=== PATIENT | female | born 1995 | race Caucasian/White ===

== ENCOUNTER 2017-08-12 10:19 | Emergency (ER) | payer OTHER ==
[~2017-08-12] VITALS: Ht 160 cm; Wt 108.0 kg
[2017-08-12 10:24] VITALS: TEMP 36.8; Ht 160 cm; Wt 108.0 kg
--- NOTE | 2017-08-12 10:30 | EMERGENCY ROOM VISIT NOTE ---
ED Visit Note First contact with patient: 10:28 CHIEF COMPLAINT: Left flank pain, urinary symptoms HISTORY OF PRESENTING ILLNESS: This is a 21-year-old female who presents to the emergency department with complaint of left flank pain and symptoms of urinary frequency, urgency, and dysuria. Patient states that her symptoms started approximately 2 days ago. She does report a history of frequent UTIs, and states that she thought that is what this was, so she went to urgent care yesterday to be evaluated. She was told that she had a UTI and was started on ciprofloxacin and given Pyridium. She has taken 2 doses of the Cipro, but has not been feeling any better, and her left flank pain but a little bit worse. She reports some low-grade fevers and some chills, intermittent nausea, but denies any vomiting. She denies any other symptoms of headache, vision changes , neck pain or stiffness, chest pain, shortness of breath, dizziness or syncope , diarrhea, blood in the urine, abnormal vaginal bleeding or discharge, or unusual rash. REVIEW OF SYSTEMS: A complete 10 point review of systems was reviewed with the patient with pertinent positives and negatives as per history of present illness. All else were negative. PAST MEDICAL HISTORY: PCOS SOCIAL HISTORY: Lives at home. She is a [employer] student. She denies tobacco use. ALLERGIES: No known allergies. PHYSICAL EXAM: CONSTITUTIONAL: Pleasant and cooperative. No acute distress, but appears uncomfortable. Well appearing and well nourished. HEENT: Normocephalic, atraumatic. Pupils equal, round and reactive to light, EOMI. TMs normal. Pharynx normal. NECK: Supple, full active range of motion without discomfort. RESPIRATORY: Clear to auscultation bilaterally with no wheezing, crackles, rhonchi or stridor. Equal expansion bilaterally. CARDIOVASCULAR: Regular rate and rhythm with no murmurs, rubs or gallops. Normal peripheral perfusion. No edema. GASTROINTESTINAL: Soft, mild tenderness to palpation of the left flank, left- sided CVA tenderness, nondistended. No rebound tenderness or guarding. No palpable masses or HSM. Bowel sounds present in all quadrants. MUSCULOSKELETAL: Full range of motion of all joints without discomfort. INTEGUMENTARY: No rash or other significant dermatologic conditions noted. NEUROLOGIC: Alert and oriented X 4 with normal affect. Normal strength and sensation in all 4 extremities. No focal neurologic deficits noted. Normal speech. Normal gait observed. ED COURSE AND MEDICAL DECISION MAKING: CC: Patient presenting with complaint of left flank pain and urinary symptoms DIFFERENTIAL DIAGNOSIS: Includes, but not limited to UTI, pyelonephritis, ureteral stone, diverticulitis, pancreatitis, gastroenteritis, ectopic , ovarian pathology, among others. INTERPRETATION OF LABS: Leukocytosis left shift, no anemia, no significant electrolyte abnormalities, normal renal function, normal liver enzymes and lipase. UA consistent with UTI. Urine negative. IMAGING: ABDOMEN AND PELVIS CT WITHOUT CONTRAST CT DOSE: 1159.03 mGy.cm HISTORY: left flank pain, urinary frequency, eval stone vs pyelo TECHNIQUE: Multiaxial CT images of the abdomen and pelvis were performed without the use of intravenous and oral contrast according to the standard department stone protocol. A dose lowering technique was utilized adhering to the principles of ALARA. COMPARISON STUDY: None. FINDINGS: The lung bases are clear. No pneumoperitoneum. No pneumatosis. No acute fractures within the visualized osseous structures. The unenhanced liver, gallbladder, spleen, adrenal glands, pancreas, and right kidney are unremarkable. No renal or ureteral stones. No hydronephrosis. Mild left perinephric fat stranding. Mild bladder wall thickening. An intrauterine device is in good position. Suboptimal evaluation for bowel pathology due to the lack images and oral contrast. However, there is no definite bowel wall thickening or obstruction. Normal appendix. IMPRESSION: 1. Mild left perinephric fat stranding. No renal or ureteral stones. No hydronephrosis. Therefore, this favors a pyelonephritis. Recommend correlation with urinalysis. 2. Mild bladder wall thickening consistent with a cystitis. MEDICATION RECONCILIATION: I attest that I have personally reviewed the patient 's current medication list. INITIAL VITAL SIGNS REVIEW: I reviewed the patient's initial vital signs and interpret them as follows: T: Afebrile; BP: Hypertensive; HR: Mildly tachycardic; RR: Within normal limits; Pulse Ox: Within normal limits on room air. Blood pressure screening: The patient was found to have an elevated blood pressure, which was felt to be situational. SUMMARY: Patient was evaluated at bedside, history and physical exam performed. Patient alert and oriented, in no acute distress but does appear to be uncomfortable and in pain, resting calmly in the stretcher. Patient has tenderness to the left flank and left CVA tenderness. Orders were placed at bedside for labs, UA and urine , IV fluids for hydration, IV Toradol for pain, CT abdomen/pelvis noncontrast to evaluate for ureteral stone. Patient discussed with Dr. Montero, who agrees with my assessment and plan. Labs and imaging reviewed as above, no evidence of ureteral stone on CT. Findings consistent with a developing left-sided pyelonephritis. Patient was treated with 2 g IV Rocephin, and will continue her on the ciprofloxacin. She is afebrile, tolerating PO without difficulty, I feel she is appropriate for continued outpatient management. Patient reassessed multiple times throughout ED stay, she is feeling much better after the Toradol and IV fluids, her tachycardia is downtrending. Patient was updated on all results and plan for discharge, she was encouraged to follow closely with her primary care provider. Patient was also given strict return precautions should her symptoms worsen, she verbalized understanding. Patient was discharged home in stable condition and ambulatory. Current/Historical Medications Scheduled Ciprofloxacin HCl (Ciprofloxacin), 500 MG PO BID Ciprofloxacin Hcl (Cipro), 1 TAB PO BID Metformin Hcl Er (Glucophage Er), 500 MG PO DAILY Phenazopyridine HCl (Pyridium), 200 MG PO BID Allergies Coded Allergies: No Known Allergies (Unverified , 08/12/17) Vital Signs Date Time Temp Pulse Resp B/P (MAP) Pulse Ox O2 Delivery O2 Flow Rate FiO2 08/12/17 14:41 76 17 08/12/17 14:32 106/67 08/12/17 14:11 80 21 98 08/12/17 14:06 82 18 98 08/12/17 14:01 114/78 08/12/17 13:36 82 21 99 08/12/17 13:31 115/56 08/12/17 13:06 87 21 97 08/12/17 13:01 99/68 08/12/17 12:36 90 29 98 08/12/17 12:31 92 08/12/17 12:31 86 23 111/61 99 08/12/17 11:19 97 21 08/12/17 11:08 121/71 08/12/17 10:24 36.8 94 18 145/89 95 Room Air Laboratory Results 08/12/17 11:05 Red Blood Count 4.91, Mean Corpuscular Volume 82.9, Mean Corpuscular Hemoglobin 27.7, Mean Corpuscular Hemoglobin Concent 33.4, Mean Platelet Volume 8.7, Neutrophils (%) (Auto) 80.5, Lymphocytes (%) (Auto) 12.4, Monocytes (%) (Auto) 6.4, Eosinophils (%) (Auto) 0.3, Basophils (%) (Auto) 0.1, Neutrophils # (Auto) 11.71, Lymphocytes # (Auto) 1.81, Monocytes # (Auto) 0.93, Eosinophils # (Auto) 0.04, Basophils # (Auto) 0.02 08/12/17 11:05 Test 08/12/17 11:05 White Blood Count 14.56 K/uL (4.8-10.8) Red Blood Count 4.91 M/uL (4.2-5.4) Hemoglobin 13.6 g/dL (12.0-16.0) Hematocrit 40.7 % (37-47) Mean Corpuscular Volume 82.9 fL (80-100) Mean Corpuscular Hemoglobin 27.7 pg (25-34) Mean Corpuscular Hemoglobin Concent 33.4 g/dl (32-36) Platelet Count 259 K/uL (130-400) Mean Platelet Volume 8.7 fL (7.4-10.4) Neutrophils (%) (Auto) 80.5 % Lymphocytes (%) (Auto) 12.4 % Monocytes (%) (Auto) 6.4 % Eosinophils (%) (Auto) 0.3 % Basophils (%) (Auto) 0.1 % Neutrophils # (Auto) 11.71 K/uL (1.4-6.5) Lymphocytes # (Auto) 1.81 K/uL (1.2-3.4) Monocytes # (Auto) 0.93 K/uL (0.11-0.59) Eosinophils # (Auto) 0.04 K/uL (0-0.5) Basophils # (Auto) 0.02 K/uL (0-0.2) RDW Standard Deviation 42.6 fL (36.4-46.3) RDW Coefficient of Variation 14.0 % (11.5-14.5) Immature Granulocyte % (Auto) 0.3 % Immature Granulocyte # (Auto) 0.05 K/uL (0.00-0.02) Urine Color DK YELLOW Urine Appearance CLEAR (CLEAR) Urine pH 5.5 (4.5-7.5) Urine Specific [place] 1.028 (1.000-1.030) Urine Protein NEG (NEG) Urine Glucose (UA) NEG (NEG) Urine Ketones NEG (NEG) Urine Occult Blood NEG (NEG) Urine Nitrite POS (NEG) Urine Bilirubin NEG (NEG) Urine Urobilinogen NEG (NEG) Urine Leukocyte Esterase SMALL (NEG) Urine WBC (Auto) 5-10 /hpf (0-5) Urine RBC (Auto) 0-4 /hpf (0-4) Urine Hyaline Casts (Auto) 1-5 /lpf (0-5) Urine Epithelial Cells (Auto) >30 /lpf (0-5) Urine Bacteria (Auto) NEG (NEG) Urine Test NEG (NEG) Anion Gap 5.0 mmol/L (3-11) Est Creatinine Clear Calc Drug Dose 114.6 ml/min Estimated GFR () 103.3 Estimated GFR (Non- 89.1 BUN/Creatinine Ratio 12.8 (10-20) Calcium Level 9.1 mg/dl (8.5-10.1) Total Bilirubin 0.8 mg/dl (0.2-1) Direct Bilirubin 0.1 mg/dl (0-0.2) Aspartate Amino Transf (AST/SGOT) 15 U/L (15-37) Alanine Aminotransferase (ALT/SGPT) 22 U/L (12-78) Alkaline Phosphatase 89 U/L (45-117) Total Protein 8.2 gm/dl (6.4-8.2) Albumin 3.6 gm/dl (3.4-5.0) Medications Administered Medications (Trade) Dose Ordered Sig/Surjit Route Start Time Stop Time Status Last Admin Dose Admin Sodium Chloride 1,000 ml @ 999 mls/hr Q1H1M STAT IV 08/12/17 10:52 08/12/17 11:52 DC 08/12/17 11:38 999 MLS/HR Ondansetron HCl (Zofran Inj) 4 mg NOW STAT IV 08/12/17 10:52 08/12/17 10:54 DC 08/12/17 11:39 4 MG Ceftriaxone Sodium 2000 mg/ Dextrose 70 ml @ 100 mls/hr ONE STAT IV 08/12/17 12:16 08/12/17 12:57 DC 08/12/17 12:36 100 MLS/HR Ketorolac Tromethamine (Toradol Inj) 15 mg NOW STAT IV 08/12/17 13:56 08/12/17 13:57 DC 08/12/17 14:29 15 MG Departure Information Impression Primary Impression: Pyelonephritis Dispostion Home / Self-Care Condition GOOD Prescriptions Ciprofloxacin Hcl (CIPRO) 500 Mg Tab 1 TAB PO BID for 7 Days, #14 TAB Prov: KeshavTanya CRNP 08/12/17 Referrals No Doctor, Assigned (PCP) Patient Instructions ED Kidney Infec Female, My [facility] Additional Instructions You have been treated in the Emergency Department for a Urinary Tract Infection (UTI) and pyelonephritis (kidney infection). Continue your prescribed ciprofloxacin, twice a day for 10 days. This antibiotic should treat your kidney infection. All antibiotics have the potential to cause diarrhea. Stop this medication and contact a medical provider if you were to develop any significant adverse side effects including: wheezing, shortness of breath, passing out, vomiting, or a diffuse rash. Always take antibiotics as directed and COMPLETE the ENTIRE course regardless of the improvement of your symptoms. An additional prescription for Ciprofloxacin has been sent to your pharmacy, you should take this if your other prescription is less than 10 day supply. For pain control, you may take the following [id number] medications: -Tylenol 1000 mg every 8 hours as needed -Ibuprofen 600 mg every 6-8 hours as needed. For best results, he may alternate between the Tylenol and the ibuprofen every 3 -4 hours. Drink plenty of water and stay well hydrated. Please follow-up with your Primary Care Provider in the next few days to ensure that you are improving on the above treatment plan. Return to the emergency department if your symptoms persist despite treatment plan outlined above or if the following symptoms occur: increased fevers, chills , worsening low back or abdominal pain, severe nausea/vomiting, large amounts of blood in your urine, or any other concerns. School Instructions Return To School: 1 day
[2017-08-12] MEDS ORDERED: SODIUM CHLORIDE 0.9% 1000ML 1,000 ML IV STA (10:52)
[2017-08-12] MEDS ORDERED: ONDANSETRON INJ 2 MG/ML 2 ML VIAL IV STA (10:52)
[2017-08-12] MEDS ORDERED: PHEN-876 PO (11:21)
[2017-08-12] MEDS ORDERED: CIPR1TAB11 PO (11:21)
[2017-08-12] MEDS ORDERED: METF500T5 PO (11:21)
[2017-08-12 11:22] LABS: BASO % 0.1 %; BASO ABS # 0.02 K/uL (0-0.2); EOS % 0.3 %; EOS ABS # 0.04 K/uL (0-0.5); HEMATOCRIT 40.7 % (37-47); HEMOGLOBIN 13.6 g/dL (12.0-16.0); IG# 0.05 K/uL (0.00-0.02); LYMPH % 12.4 %; LYMPH ABS # 1.81 K/uL (1.2-3.4); MEAN CELL VOLUME 82.9 fL (80-100); MEAN CORPUSCULAR HEMOGLOBIN 27.7 pg (25-34); MEAN CORPUSCULAR HGB CONC 33.4 g/dl (32-36); MEAN PLATELET VOLUME 8.7 fL (7.4-10.4); MONO % 6.4 %; MONO ABS # 0.93 K/uL (0.11-0.59); NEUT % 80.5 %; NEUT ABS # 11.71 K/uL (1.4-6.5); PLATELET COUNT 259 K/uL (130-400); RED CELL DISTRIBUTION WIDTH SD 42.6 fL (36.4-46.3); WHITE BLOOD COUNT 14.56 K/uL (4.8-10.8)
[2017-08-12 11:44] LABS: ALBUMIN 3.6 gm/dl (3.4-5.0); CALCIUM 9.1 mg/dl (8.5-10.1); CREATININE 0.93 mg/dl (0.60-1.20); POTASSIUM 3.7 mmol/L (3.5-5.1)
[2017-08-12 11:47] LABS: TOTAL PROTEIN 8.2 gm/dl (6.4-8.2)
--- NOTE | 2017-08-12 12:04 | DIAGNOSTIC IMAGING REPORT ---
ABDOMEN AND PELVIS CT WITHOUT CONTRAST CT DOSE: 1159.03 mGy.cm HISTORY: left flank pain, urinary frequency, eval stone vs pyelo TECHNIQUE: Multiaxial CT images of the abdomen and pelvis were performed without the use of intravenous and oral contrast according to the standard department stone protocol. A dose lowering technique was utilized adhering to the principles of ALARA. COMPARISON STUDY: None. FINDINGS: The lung bases are clear. No pneumoperitoneum. No pneumatosis. No acute fractures within the visualized osseous structures. The unenhanced liver, gallbladder, spleen, adrenal glands, pancreas, and right kidney are unremarkable. No renal or ureteral stones. No hydronephrosis. Mild left perinephric fat stranding. Mild bladder wall thickening. An intrauterine device is in good position. Suboptimal evaluation for bowel pathology due to the lack images and oral contrast. However, there is no definite bowel wall thickening or obstruction. Normal appendix. IMPRESSION: 1. Mild left perinephric fat stranding. No renal or ureteral stones. No hydronephrosis. Therefore, this favors a pyelonephritis. Recommend correlation with urinalysis. 2. Mild bladder wall thickening consistent with a cystitis. Electronically signed by: Chacorta Lucio M.D. 08/12/2017 12:02 PM Dictated Date/Time: 08/12/2017 11:55 AM
[2017-08-12] MEDS ORDERED: CEFTRIAXONE SOD INJ 2,000 MG in DEXTROSE 5% 50ML 50 ML IV STA (12:16)
[2017-08-12] MEDS ORDERED: KETOROLAC TROMETHAMINE 30 MG/ML VIAL IV STA (13:56)
[2017-08-12 14:11] VITALS: O2SAT 98
[2017-08-12] MEDS ORDERED: CIPR-304 PO (14:26)
[2017-08-12 14:32] VITALS: BP 106/67
[2017-08-12] MEDS ORDERED: CIPR-255 PO (14:33)
[2017-08-12 14:41] VITALS: PULSE 76
== END 2017-08-12 14:45 | disposition home or self-care (01) ==
LOC: C.EDB 10:21 → C.EDC 14:45
DX: N12 Tubulo-interstitial nephritis, not specified as acute or chronic (principal); N39.0 Urinary tract infection, site not specified; E28.2 Polycystic ovarian syndrome; Z87.440 Personal history of urinary (tract) infections; Z79.84 Long term (current) use of oral hypoglycemic drugs